=== PATIENT | male | born 1970 | race Caucasian/White ===

== ENCOUNTER 2017-09-10 16:32 | Emergency (ER) | payer MEDICAID, OTHER ==
[2017-09-10 16:39] VITALS: BP 154/93; TEMP 98.9; BMI 40.0
[2017-09-10] MEDS ORDERED: NORCO 10-325 PO STA (17:34)
--- NOTE | 2017-09-10 17:37 | ED.PDOC ---
General ED Provider: Dr. BERNADETTE PITTMAN Chief Complaint: Chest Wall Injury/Pain Stated Complaint: chest wall Time Seen by Physician: 16:38 (was lifting an object felt a pop left chest wall has pain) Mode of Arrival: Walk-In Information Source: Patient Exam Limitations: No limitations (this pain regionaly reproduceable) Primary Care Provider: XI HORNE Nursing and Triage Documentation Reviewed and Agree: Yes Reviewed sepsis parameters & appropriate labs ordered?: Yes System Inflammatory Response Syndrome: Not Applicable Sepsis Protocol: For patient's 13 years and over: Temp is 96.8 and below OR 101 and greater Pulse >90 BPM Resp >20/minute Acutely Altered Mental Status Are patient's symptoms suggestive of a new infection, such as: -Pneumonia -Skin, Soft Tissue -Endocarditis -UTI -Bone, Joint Infection -Implantable Device -Acute Abdominal Infection -Wound Infection -Meningitis -Blood Stream Catheter Infection -Unknown System Inflammatory Response Syndrome: Not Applicable Trauma/Injury Complaint Exam - Trauma Complaint/Exam Location of Pain or Injury: Reports: Chest (left chest) Mechanism of Injury: Denies: MVC, ATV Injury, Motorcycle Injury, Fall Onset/Duration: 1 hr ago Symptoms Are: Still present Timing of Treatment: Immediate Initial Severity: Mild Current Severity: Mild Character: Reports: Aching Aggravating: Reports: Movement Alleviating: Reports: Rest Associated Signs and Symptoms: Denies: LOC, Confusion, Memory loss, Lethargy, Vomiting, Bleeding, Bruising, Swelling, Extremity disuse, Painful respiration, Hoarseness, Dysphagia, Hemoptysis, Significant blood loss Penetrating Injury Risk Factors: Reports: None Differential Diagnoses: Fracture, Sprain, Strain Review of Systems - Review Of Systems Constitutional: Reports: No symptoms Eyes: Reports: No symptoms Ears, Nose, Mouth, Throat: Reports: No symptoms Respiratory: Reports: No symptoms Cardiac: Reports: No symptoms GI: Reports: No symptoms : Reports: No symptoms Musculoskeletal: Reports: No symptoms Skin: Reports: Other (chest wall pain) Neurological: Reports: No symptoms Endocrine: Reports: No symptoms Hematologic/Lymphatic: Reports: No symptoms All Other Systems: Reviewed and Negative Past Medical History - Past Medical History Previously Healthy: No Endocrine: Reports: None Cardiovascular: Reports: None, Hypertension Respiratory: Reports: None Hematological: Reports: None Gastrointestinal: Reports: None Genitourinary: Reports: None Neuro/Psych: Reports: None Musculoskeletal: Reports: None Cancer: Reports: None - Surgical History General Surgical History: Reports: None - Family History Family History: Reports: None - Social History Smoking Status: Current every day smoker, Heavy tobacco smoker Hx Substance Use: No Alcohol Screening: None Physical Exam - Physical Exam Appearance: Well-appearing, No pain distress, Well-nourished Eyes: JANETH, EOMI, Conjunctiva clear ENT: Ears normal, Nose normal, Oropharynx normal Respiratory: Airway patent, Breath sounds clear, Breath sounds equal, Respirations nonlabored Cardiovascular: RRR, Pulses normal, No rub, No murmur GI/: Soft, Nontender, No masses, Bowel sounds normal, No Organomegaly Musculoskeletal: Normal strength, ROM intact, No edema, No calf tenderness Skin: Warm, Dry, Normal color Neurological: Sensation intact, Motor intact, Reflexes intact, Cranial nerves intact, Alert, Oriented Psychiatric: Affect appropriate, Mood appropriate Interpretation - Radiology Interpretation Radiology Interpretation By: Radiologist Radiology Results: No acute changes Critical Care Note - Critical Care Note Total Time (mins): 0 Course - Course Orders, Labs, Meds: Orders Category Date Time Status Hydrocodone Bit/Acetaminophen [[place] 10-325] MEDS 09/10/17 17:34 Stat 1 tab PO ONCE STA CT CHEST W/O CONTRAST Stat RADS 09/10/17 17:00 Ordered Medications Discontinued Medications Generic Name Dose Route Start Last Admin Trade Name Carsonq PRN Reason Stop Dose Admin Hydrocodone Bitart/Acetaminophen 1 tab 09/10/17 17:34 [place] 10-325 PO 09/10/17 17:35 ONCE STA Vital Signs: Temp Pulse Resp BP Pulse Ox 09/10/17 16:33 98.9 F 106 H 20 154/93 H 93 L Departure - Departure Time of Disposition: 18:00 Disposition: HOME SELF-CARE Discharge Problem: Chest wall pain Instructions: Chest Wall Pain (ED), Noncardiac Chest Pain (ED), Thoracic Pain ( ED) Condition: Good Pt referred to PMD for follow-up: Yes IPMP verified?: No Additional Instructions: Please call your Family Physician as soon as possible to schedule a follow-up appointment. Allergies/Adverse Reactions: Allergies No Known Allergies Allergy (Verified 09/10/17 16:41) Home Medications: Ambulatory Orders Folic Acid 1 mg PO DIRECTED 09/10/17 Glipizide 5 mg PO DAILY 09/10/17 Lisinopril [Zestril] 40 mg PO DAILY 09/10/17 Meloxicam 15 mg PO DAILY 09/10/17 Metformin HCl [Metformin HCl ER] 500 mg PO BID 09/10/17 Methotrexate Sodium [Methotrexate] 2.5 mg PO DIRECTED 09/10/17 Prednisone 10 mg PO DAILY 09/10/17 Sertraline HCl [Zoloft] 100 mg PO DAILY 09/10/17 Tamsulosin HCl [Flomax] 0.4 mg PO DAILY 09/10/17
--- NOTE | 2017-09-10 17:37 | CT ---
EXAM: CT of the chest without contrast. HISTORY: Cough. PROCEDURE: Contiguous axial CT images of the chest without contrast with coronal and sagittal and 3- D reformats. FINDINGS: The heart is within normal limits in size. The thoracic aorta is within normal limits in d iameter. There are calcified mediastinal and hilar lymph nodes. There is minimal bibasilar atelectas is and/or pneumonia. There are degenerative changes in the spine. There is old healed fracture of the left lateral ninth rib. The adrenal glands and visualized portion of the liver are normal in appear ance. Impression: Minimal bibasilar atelectasis and/or pneumonia.
== END 2017-09-10 17:49 | disposition home or self-care (01) ==
LOC: ED 16:32
DX: R07.89 Other chest pain (principal); X50.9XXA Other and unspecified overexertion or strenuous movements or postures, initial encounter; F17.210 Nicotine dependence, cigarettes, uncomplicated
CPT/HCPCS: 99283